=== PATIENT | female | born 1995 | race Two or more races ===

== ENCOUNTER 2023-08-27 13:55 | Emergency (ER) | payer OTHER ==
[~2023-08-27] VITALS: Ht 160 cm; Wt 128.8 kg
[2023-08-27] MEDS ORDERED: PRENATAL (14:36)
[2023-08-27] MEDS ORDERED: LEVOTHYROXINE25 MCG (14:36)
[2023-08-27] MEDS ORDERED: 0.9 % SODIUM CHLORIDE 1,000 ML IV STA (15:34)
[2023-08-27] MEDS ORDERED: FAMOtidine 10 MG/ML (4ML VIAL) IV SCH (15:45)
[2023-08-27] MEDS ORDERED: ONDANSETRON HCL 2 MG/ML VIAL IV ONE (15:45)
[2023-08-27 16:19] LABS: PH,URINE 6.5 (5.0-8.0); URINE APPEARANCE Clear; URINE BILIRRUBIN Negative (NEGATIVE); URINE BLOOD Negative; URINE COLOR Yellow; URINE GLUCOSE Negative (NEGATIVE); URINE LEUKOCYTE Moderate; URINE NITRATE Negative; URINE PROTEIN Negative (NEGATIVE); URINE UROBILINOGEN 0.2 E.U./dl
[2023-08-27 16:22] LABS: URINE BACTERIA 1790.2 uL (0.0-1933); URINE EPITHELIAL CELLS 36.4 uL (0.0-38.8); URINE RBC 4.7 uL (0.0-20.8); URINE WBC 49.1 uL (0.0-23.2)
[2023-08-27 16:32] LABS: HEMATOCRIT 34.9 % (36.0-45.00); HEMOGLOBIN 11.8 g/dL (12.0-15.00); MEAN CELL VOLUME 85.3 fL (80.00-100.00); MEAN CORPUSCULAR HEMOGLOBIN 28.9 pg (27.00-32.0); MEAN CORPUSCULAR HGB CONC 33.9 g/dl (32.0-36.0); PLATELET COUNT 210 K/uL (150-450); RED BLOOD COUNT 4.09 M/uL (4.00-6.00); RED CELL DISTRIBUTION WIDTH 15.2 % (11.5-14.5)
[2023-08-27 16:40] LABS: CREATININE SERUM 0.45 mg/dL (0.55-1.02); GFR 165.9; POTASSIUM 3.54 mEq/L (3.5-5.1)
== END 2023-08-27 19:56 | disposition home or self-care (01) ==
LOC: ER 13:56
PROVIDERS: General Practice
DX: O99.612 Diseases of the digestive system complicating pregnancy, second trimester (principal); K52.89 Other specified noninfective gastroenteritis and colitis; Z3A.22 22 weeks gestation of pregnancy

== ENCOUNTER 2023-10-24 13:33 | Outpatient (CLI) | payer OTHER ==
[~2023-10-24 13:33] MED LIST: LEVOTHYROXINE25 MCG; PRENATAL
== END 2023-10-24 14:52 | disposition home or self-care (01) ==
LOC: NST 13:33
PROVIDERS: ATTEND Obstetrics & Gynecology Gynecology
DX: Z34.83 Encounter for supervision of other normal pregnancy, third trimester (principal)

== ENCOUNTER 2023-11-25 09:34 | Outpatient (CLI) | payer OTHER | END 2023-11-25 11:11 | disposition home or self-care (01) | LOC: NST 09:34 | PROVIDERS: ATTEND Obstetrics & Gynecology Maternal & Fetal Medicine | DX: Z34.83 Encounter for supervision of other normal pregnancy, third trimester (principal) ==

== ENCOUNTER 2023-12-09 16:37 | Outpatient (CLI) | payer OTHER ==
[~2023-12-09] VITALS: Ht 157.5 cm; Wt 136.1 kg
[2023-12-09 15:53] VITALS: BP 132/67
[2023-12-09 17:36] LABS: PH,URINE 6.5 (5.0-8.0); URINE APPEARANCE Cloudy; URINE BILIRRUBIN Negative (NEGATIVE); URINE BLOOD Trace; URINE COLOR Yellow; URINE GLUCOSE Negative (NEGATIVE); URINE KETONE 15 (NEGATIVE); URINE LEUKOCYTE Large; URINE NITRATE Negative; URINE PROTEIN Negative (NEGATIVE); URINE UROBILINOGEN 0.2 E.U./dl
[2023-12-09 17:37] LABS: URINE EPITHELIAL CELLS 102.5 uL (0.0-38.8); URINE RBC 3.8 uL (0.0-20.8); URINE WBC 523.6 uL (0.0-23.2)
[2023-12-09 17:39] LABS: HEMATOCRIT 34.2 % (36.0-45.00); HEMOGLOBIN 11.4 g/dL (12.0-15.00); MEAN CELL VOLUME 84.5 fL (80.00-100.00); MEAN CORPUSCULAR HEMOGLOBIN 28.2 pg (27.00-32.0); MEAN CORPUSCULAR HGB CONC 33.3 g/dl (32.0-36.0); PLATELET COUNT 233 K/uL (150-450); RED BLOOD COUNT 4.05 M/uL (4.00-6.00); RED CELL DISTRIBUTION WIDTH 14.6 % (11.5-14.5)
[2023-12-09 18:00] LABS: URINE BACTERIA > 9821.5 uL (0.0-1933); URINE MUCUS SCANT
[2023-12-09 18:02] LABS: URINE YEAST FEW /hpf
[2023-12-09 18:18] LABS: ALBUMIN 2.6 gm/dL (3.4-5.0); BILIRUBIN TOTAL 0.34 mg/dL (0.3-1.2); CALCIUM 8.8 mg/dL (8.5-10.1); CREATININE SERUM 0.49 mg/dL (0.55-1.02); GFR 149.31; GLOBULINA 3.8 G/DL (2.4-3.5); POTASSIUM 3.98 mEq/L (3.5-5.1); TOTAL PROTEIN 6.4 gm/dL (6.4-8.2)
[2023-12-09] MEDS ORDERED: SYNTHROID125 MCG PO (18:34)
[2023-12-09] MEDS ORDERED: RINGERS SOLUTION,LACTATED 1,000 ML IV SCH (18:45)
[2023-12-09 19:39] VITALS: BP 109/66
[2023-12-09] MEDS ORDERED: DIPHENHYDRAMINE HCL 50 MG/ML VIAL 1ML IV ONE (20:30)
[2023-12-09 23:41] VITALS: BP 106/66; O2SAT 99
[2023-12-10 03:13] VITALS: BP 100/59; O2SAT 99
[2023-12-10] MEDS ORDERED: LEVOTHYROXINE SODIUM 125 MCG TABLET PO SCH (06:00)
[2023-12-10 07:25] VITALS: BP 100/69
== END 2023-12-10 10:48 | disposition home or self-care (01) ==
LOC: LDR 16:37 → OBS/DEL 16:37 → LDR 12-10 07:51 → OBS/DEL 12-10 10:48 → EDSTATUS 01-01 09:42
PROVIDERS: ATTEND Obstetrics & Gynecology
DX: O26.893 Other specified pregnancy related conditions, third trimester (principal); Z3A.34 34 weeks gestation of pregnancy

== ENCOUNTER 2023-12-29 09:15 | Outpatient (CLI) | payer OTHER ==
[~2023-12-29 09:15] MED LIST changes: +SYNTHROID125 MCG PO
== END 2023-12-29 10:03 | disposition home or self-care (01) ==
LOC: NST 09:15
PROVIDERS: ATTEND Obstetrics & Gynecology
DX: Z34.83 Encounter for supervision of other normal pregnancy, third trimester (principal)

== ENCOUNTER 2023-12-31 06:47 | Inpatient (IN) | payer OTHER ==
[2023-12-25 16:06] LABS: HEMATOCRIT 34.4 % (36.0-45.00); HEMOGLOBIN 11.4 g/dL (12.0-15.00); MEAN CELL VOLUME 83.9 fL (80.00-100.00); MEAN CORPUSCULAR HEMOGLOBIN 27.7 pg (27.00-32.0); MEAN CORPUSCULAR HGB CONC 33.1 g/dl (32.0-36.0); PLATELET COUNT 222 K/uL (150-450); RED CELL DISTRIBUTION WIDTH 14.8 % (11.5-14.5)
[2023-12-25 16:22] LABS: INR 0.94; PARTIAL THROMBOPLASTIN TIME 26.4 SECONDS (22.0-34.0); PROTHROMBIN TIME 10.3 SECONDS (9.0-11.5)
[2023-12-25 16:24] LABS: ALBUMIN 2.6 gm/dL (3.4-5.0); BILIRUBIN TOTAL 0.24 mg/dL (0.3-1.2); CALCIUM 8.8 mg/dL (8.5-10.1); CREATININE SERUM 0.51 mg/dL (0.55-1.02); GFR 142.57; GLOBULINA 3.9 G/DL (2.4-3.5); POTASSIUM 4.18 mEq/L (3.5-5.1); TOTAL PROTEIN 6.5 gm/dL (6.4-8.2)
[~2023-12-31] VITALS: Ht 160 cm; Wt 138.8 kg
[2023-12-31 06:25] VITALS: BP 90/58
[2023-12-31] MEDS ORDERED: OXYTOCIN 1,000 ML IV SCH (13:45)
[2023-12-31] MEDS ORDERED: MORPHINE SULFATE 4 MG/ML CARTRIDGE IV PRN (13:45)
[2023-12-31] MEDS ORDERED: CEFAZOLIN SODIUM 1,000 MG VIAL IV ONE (14:30)
[2023-12-31] MEDS ORDERED: ERYTHROMYCIN BASE OPHT 1GM EACH TUBE OP ONE (14:30)
[2023-12-31] MEDS ORDERED: OXYTOCIN 10 UNITS/ML VIAL IV ONE (14:30)
[2023-12-31] MEDS ORDERED: MORPHINE SULFATE 4 MG/ML VIAL IV ONE ×3 (14:50→15:20)
[2023-12-31 18:10] VITALS: BP 127/77
[2024-01-01 00:52] VITALS: BP 116/72
[2024-01-01 08:57] VITALS: BP 100/68; BP 126/79
[2024-01-01] MEDS ORDERED: IBUprofen 400 MG TABLET PO SCH (09:00)
[2024-01-01 10:57] LABS: HEMATOCRIT 33.3 % (36.0-45.00); MEAN CELL VOLUME 83.6 fL (80.00-100.00); MEAN CORPUSCULAR HEMOGLOBIN 26.8 pg (27.00-32.0); PLATELET COUNT 207 K/uL (150-450); RED BLOOD COUNT 3.99 M/uL (4.00-6.00); RED CELL DISTRIBUTION WIDTH 14.8 % (11.5-14.5)
[2024-01-01 10:58] LABS: HEMOGLOBIN 10.7 g/dL (12.0-15.00)
[2024-01-01 16:35] VITALS: BP 104/62
[2024-01-02] VITALS: BP 115/73
[2024-01-02] MEDS ORDERED: OxyCODONE HCL 5 MG TABLET (ROXICODONE) PO PRN (06:00)
[2024-01-02] MEDS ORDERED: IBUprofen 400 MG TABLET PO SCH (09:00)
[2024-01-02 09:59] VITALS: BP 102/74
== END 2024-01-02 13:50 | disposition home or self-care (01) | DRG 788 ==
LOC: O/R 06:47 → OB/GYN 09:30
PROVIDERS: ADMIT Obstetrics & Gynecology; ATTEND Obstetrics & Gynecology
PROC: 4A1HXCZ Monitoring of Products of Conception, Cardiac Rate, External Approach (ICD-10-PCS; 2023-12-31)
PROC: 10D00Z1 Extraction of Products of Conception, Low, Open Approach (ICD-10-PCS; principal; 2023-12-31 09:30)
DX: O34.211 Maternal care for low transverse scar from previous cesarean delivery (principal); Z3A.38 38 weeks gestation of pregnancy; Z37.0 Single live birth; Z20.822 Contact with and (suspected) exposure to COVID-19